=== PATIENT | male | born 2000 | race Two or more races ===

== ENCOUNTER 2018-11-07 13:43 | Outpatient (CLI) | payer OTHER ==
[~2018-11-07] VITALS: Ht 172.7 cm; Wt 63.5 kg
== END 2018-11-07 14:00 | disposition home or self-care (01) ==
LOC: OFIC 805 13:43
DX: J03.81 Acute recurrent tonsillitis due to other specified organisms (principal); J36 Peritonsillar abscess

== ENCOUNTER 2018-11-10 13:26 | Outpatient (CLI) | payer OTHER ==
[~2018-11-10] VITALS: Ht 152.4 cm; Wt 63.5 kg
== END 2018-11-10 13:40 | disposition home or self-care (01) ==
LOC: OFIC 805 13:26
DX: J03.81 Acute recurrent tonsillitis due to other specified organisms (principal); J36 Peritonsillar abscess

== ENCOUNTER 2018-11-21 05:36 | Day surgery (SDC) | payer OTHER | END 2018-11-21 13:50 | disposition home or self-care (01) | LOC: CIR.AMB 05:36 | DX: J35.1 Hypertrophy of tonsils (principal) ==

== ENCOUNTER → 2018-11-21 | Emergency (ER) | payer OTHER ==
[~2018-11-21] VITALS: Ht 172.7 cm; Wt 63.5 kg
== END | disposition home or self-care (01) ==
LOC: ER 22:46
DX: R07.0 Pain in throat (principal)

== ENCOUNTER 2018-11-26 14:15 | Emergency (ER) | payer OTHER ==
[~2018-11-26] VITALS: Ht 172.7 cm; Wt 63.5 kg
== END 2018-11-26 19:05 | disposition home or self-care (01) ==
LOC: ER 14:15
DX: R04.1 Hemorrhage from throat (principal)

== ENCOUNTER 2018-11-27 10:50 | Inpatient (IN) | payer OTHER ==
[~2018-11-27] VITALS: Ht 172.7 cm; Wt 63.5 kg
--- NOTE | 2018-11-27 11:04 | NUR ---
PTE INDICA QUE SE OPERO EL LUNES DE LAS AMIGDALAS Y ES LA TERCERA VIEZ QUE VIENE A ER POR [place]. PTE INDICA QUE ESTA VEZ A BOTADO MAS LASHAWN DE LO USUAL. PTE SE OPERO AQUI EN EL PRESBY CON LA DRA. ANA ARREDONDO. PTE ALERTA CONSCIENTE Y ORIENTADO X3
--- NOTE | 2018-11-27 12:23 | NUR ---
PTE EVALUADO POR EL DR SANTOS QUIEN [place]. MS Y BIRRIEL ORIENTA SOBRE EL MISMO, LO CUAL REFIERE ENTENDER, REALIZA PRUEBAS DE LABORATORIO Y ADMINISTRA MEDICAMENTOS JAMISON ORDEN MEDICA Y SIGUIENDO MEDIDAS ASEPTICAS.
--- NOTE | 2018-11-27 12:48 | NUR ---
SE NOTIFICA A PERSONAL DE [facility], MS SHEMAR PARA RECOGER TUBOS PILOTOS.
[2018-12-01] MEDS ORDERED: INTESTINEX680 M1 PO (10:53)
== END 2018-12-01 13:38 | disposition home or self-care (01) | DRG 908 ==
LOC: ER 10:50 → SURH 13:53
PROVIDERS: ADMIT Otolaryngology
PROC: 0W330ZZ Control Bleeding in Oral Cavity and Throat, Open Approach (ICD-10-PCS; principal; 2018-11-28)
DX: J95.831 Postprocedural hemorrhage of a respiratory system organ or structure following other procedure (principal); D68.8 Other specified coagulation defects

== ENCOUNTER 2018-12-05 12:10 | Outpatient (CLI) | payer OTHER ==
[~2018-12-05 12:10] MED LIST: INTESTINEX680 M1 PO
== END 2018-12-05 12:30 | disposition home or self-care (01) ==
LOC: OFIC 805 12:10
DX: J03.81 Acute recurrent tonsillitis due to other specified organisms (principal); J36 Peritonsillar abscess; R07.0 Pain in throat; J95.830 Postprocedural hemorrhage of a respiratory system organ or structure following a respiratory system procedure

== ENCOUNTER 2018-12-20 11:21 | Outpatient (CLI) | payer OTHER ==
[~2018-12-20] VITALS: Ht 152.4 cm; Wt 61.2 kg
== END 2018-12-20 14:20 | disposition home or self-care (01) ==
LOC: OFIC 805 11:21
DX: J03.81 Acute recurrent tonsillitis due to other specified organisms (principal)

== ENCOUNTER 2019-11-10 17:40 | Emergency (ER) | payer OTHER ==
[~2019-11-10] VITALS: Ht 170.2 cm; Wt 61.2 kg
== END 2019-11-10 19:57 | disposition home or self-care (01) ==
LOC: ER 17:40
DX: K59.09 Other constipation (principal)

== ENCOUNTER 2019-12-02 16:33 | Emergency (ER) | payer OTHER ==
[~2019-12-02] VITALS: Ht 170.2 cm; Wt 61.2 kg
== END 2019-12-02 19:44 | disposition home or self-care (01) ==
LOC: ER 16:33
DX: M27.2 Inflammatory conditions of jaws (principal)

== ENCOUNTER 2019-12-05 14:17 | Outpatient (CLI) | payer OTHER | END 2019-12-05 18:23 | disposition home or self-care (01) | LOC: OFIC 805 14:17 | PROVIDERS: ATTEND Otolaryngology | DX: R07.0 Pain in throat (principal); R22.1 Localized swelling, mass and lump, neck; K11.1 Hypertrophy of salivary gland; R53.83 Other fatigue ==

== ENCOUNTER 2019-12-11 23:41 | Emergency (ER) | payer OTHER ==
[~2019-12-11] VITALS: Ht 170.2 cm; Wt 62.6 kg
[2019-12-12] MEDS ORDERED: CELECOXIB100 MG PO (04:26)
== END 2019-12-12 04:31 | disposition home or self-care (01) ==
LOC: ER 23:41
DX: R22.1 Localized swelling, mass and lump, neck (principal)

== ENCOUNTER 2019-12-14 10:03 | Outpatient (CLI) | payer OTHER ==
[~2019-12-14 10:03] MED LIST changes: +CELECOXIB100 MG PO
== END 2019-12-14 19:00 | disposition home or self-care (01) ==
LOC: OFIC 805 10:03
PROVIDERS: ATTEND Otolaryngology
DX: R59.0 Localized enlarged lymph nodes (principal); R53.83 Other fatigue

== ENCOUNTER 2019-12-28 12:34 | Outpatient (CLI) | payer OTHER | END 2019-12-28 12:39 | disposition home or self-care (01) | LOC: SONOGRAMA 12:34 | PROVIDERS: ATTEND Pathology Anatomic Pathology | DX: I89.8 Other specified noninfective disorders of lymphatic vessels and lymph nodes (principal) ==

== ENCOUNTER 2023-03-20 21:45 | Emergency (ER) | payer OTHER ==
[~2023-03-20] VITALS: Ht 170.2 cm; Wt 72.6 kg
[2023-03-21 00:30] LABS: PH,URINE 6.5 (5.0-8.0); URINE APPEARANCE Clear; URINE BILIRRUBIN Negative (NEGATIVE); URINE BLOOD Negative; URINE COLOR Yellow; URINE GLUCOSE Negative (NEGATIVE); URINE LEUKOCYTE Negative; URINE NITRATE Negative; URINE PROTEIN Negative (NEGATIVE); URINE UROBILINOGEN 0.2 E.U./dl
[2023-03-21 00:51] LABS: HEMATOCRIT 46.7 % (39.0-48.0); HEMOGLOBIN 15.9 g/dL (13-16.00); MEAN CELL VOLUME 85.4 fL (80.0-100.00); MEAN CORPUSCULAR HEMOGLOBIN 29.1 pg (27.00-32.0); MEAN CORPUSCULAR HGB CONC 34.1 g/dl (32.0-36.0); PLATELET COUNT 238 K/uL (150-450); RED BLOOD COUNT 5.47 M/uL (4.00-6.00); RED CELL DISTRIBUTION WIDTH 13.2 % (11.5-14.5)
[2023-03-21 00:57] LABS: URINE BACTERIA 1.2 uL (0.0-1933); URINE EPITHELIAL CELLS 0.3 uL (0.0-38.8); URINE RBC 0.4 uL (0.0-20.8); URINE WBC 0.4 uL (0.0-23.2)
[2023-03-21 01:02] LABS: INR 1.07; PARTIAL THROMBOPLASTIN TIME 32.5 SECONDS (22.0-34.0); PROTHROMBIN TIME 11.2 SECONDS (9.0-11.5)
[2023-03-21 01:03] LABS: CREATININE SERUM 0.86 mg/dL (0.70-1.30); GFR 109.25; POTASSIUM 3.84 mEq/L (3.5-5.1)
[2023-03-21] MEDS ORDERED: PEPCID AC20 MG PO (03:03)
[2023-03-21] MEDS ORDERED: ONDANSETRON ODT8 MG PO (03:03)
[2023-03-21] MEDS ORDERED: LEVSIN/SL0.125 MG SL (03:03)
== END 2023-03-21 03:35 | disposition home or self-care (01) ==
LOC: ER 21:45
PROVIDERS: General Practice
DX: R10.9 Unspecified abdominal pain (principal); K52.89 Other specified noninfective gastroenteritis and colitis

== ENCOUNTER 2023-06-05 14:07 | Emergency (ER) | payer OTHER ==
[~2023-06-05] VITALS: Ht 170.2 cm; Wt 74.8 kg
[~2023-06-05 14:07] MED LIST changes: +LEVSIN/SL0.125 MG SL; +ONDANSETRON ODT8 MG PO; +PEPCID AC20 MG PO
[2023-06-05 18:22] LABS: HEMATOCRIT 44.6 % (39.0-48.0); HEMOGLOBIN 15.3 g/dL (13-16.00); MEAN CELL VOLUME 84.1 fL (80.0-100.00); MEAN CORPUSCULAR HEMOGLOBIN 28.8 pg (27.00-32.0); MEAN CORPUSCULAR HGB CONC 34.3 g/dl (32.0-36.0); PLATELET COUNT 183 K/uL (150-450); RED BLOOD COUNT 5.31 M/uL (4.00-6.00); RED CELL DISTRIBUTION WIDTH 13.7 % (11.5-14.5)
== END 2023-06-05 18:57 | disposition home or self-care (01) ==
LOC: ER 14:09
PROVIDERS: General Practice
DX: R53.81 Other malaise (principal); J06.9 Acute upper respiratory infection, unspecified; Z20.822 Contact with and (suspected) exposure to COVID-19

== ENCOUNTER 2023-06-07 18:34 | Emergency (ER) | payer OTHER ==
[~2023-06-07] VITALS: Ht 170.2 cm; Wt 74.8 kg
[2023-06-08 01:57] LABS: HEMATOCRIT 45.6 % (39.0-48.0); HEMOGLOBIN 15.7 g/dL (13-16.00); MEAN CELL VOLUME 85.3 fL (80.0-100.00); MEAN CORPUSCULAR HEMOGLOBIN 29.3 pg (27.00-32.0); MEAN CORPUSCULAR HGB CONC 34.4 g/dl (32.0-36.0); PLATELET COUNT 182 K/uL (150-450); RED BLOOD COUNT 5.35 M/uL (4.00-6.00); RED CELL DISTRIBUTION WIDTH 13.4 % (11.5-14.5)
== END 2023-06-08 02:03 | disposition home or self-care (01) ==
LOC: ER 18:34
PROVIDERS: Emergency Medicine
DX: J10.1 Influenza due to other identified influenza virus with other respiratory manifestations (principal); R53.81 Other malaise; R05.9 Cough, unspecified; Z20.822 Contact with and (suspected) exposure to COVID-19